=== PATIENT | female | born 1980 | race Caucasian/White ===

== ENCOUNTER 2020-08-19 18:16 | Emergency (ER) | payer BC ==
[~2020-08-19] VITALS: Ht 154.9 cm; Wt 59.0 kg
[2020-08-19 19:00] VITALS: BP_SYST 113
[2020-08-19] MEDS ORDERED: ACETAMINOPHEN 325 MG TABLET ONE (19:43)
[2020-08-19 20:12] LABS: BASOPHILS % (AUTO) 0.6 % (0.0-2.0); HEMATOCRIT 36.7 % (36-48); HEMOGLOBIN 12.4 g/dL (12.0-16.0); LYMPHOCYTES # (AUTO) 0.7 K/uL (1.0-5.5); LYMPHOCYTES % (AUTO) 18.1 % (20.5-51.5); MEAN CORPUSCULAR HEMOGLOBIN 29 pg (27-31); MEAN CORPUSCULAR HGB CONC 34 % (32-36); MEAN CORPUSCULAR VOLUME 86 fL (79.0-98.0); MONOCYTES # (AUTO) 0.4 K/uL (0.0-1.0); MONOCYTES % (AUTO) 9.5 % (1.7-9.3); NEUTROPHILS # (AUTO) 2.9 K/uL (1.8-7.7); NEUTROPHILS % (AUTO) 71.8 % (40.0-70.0); PLATELET COUNT (AUTO) 106 K/uL (130-430); RED BLOOD CELL COUNT(AUTO) 4.28 MIL/uL (4.2-6.2); RED CELL DISTRIBUTION WIDTH 13.5 % (9.0-15.0)
[2020-08-19 20:26] LABS: CALCIUM 8.7 mg/dL (8.4-11.0); CREATININE 0.77 mg/dL (0.55-1.30); POTASSIUM 3.3 mmol/L (3.5-5.1)
[2020-08-19 20:32] LABS: ALBUMIN 3.6 g/dL (3.4-4.8); TOTAL BILIRUBIN 0.6 mg/dL (0.0-1.0)
[2020-08-19 20:38] LABS: BILIRUBIN,URINE NEGATIVE (NEGATIVE); BLOOD, URINE 3+ (NEGATIVE); CLARITY/URINE SL CLOUDY (CLEAR); COLOR,URINE YELLOW (YELLOW); GLUCOSE,URINE NEGATIVE (NEGATIVE); KETONES,URINE 1+ (NEGATIVE); LEUKOCYTE ESTERASE ,URINE TRACE (NEGATIVE); NITRITE, URINE NEGATIVE (NEGATIVE); PROTEIN URINE 1+ (NEGATIVE)
[2020-08-19 21:31] LABS: BACTERIA,URINE None Seen /HPF (None Seen); CALCIUM OXALATE CRYSTALS,UR None Seen /HPF (None Seen); CALCIUM PHOSPHATE CRYSTALS,UR None Seen /HPF (None Seen); TRICHOMONAS,URINE None Seen /HPF (None Seen); WBC,URINE 0-3 /HPF (0-3); YEAST,URINE None Seen /HPF (None Seen)
[2020-08-19] MEDS ORDERED: NACL 0.9% 1,000 ML IV ONE ×2 (22:15)
[2020-08-19] MEDS ORDERED: KETOROLAC TROMETHAMINE 30 MG VIAL IVP ONE (22:15)
[2020-08-20] MEDS ORDERED: METOCLOPRAMIDE HCL 10 MG/2 ML VIAL IVP ONE
[2020-08-20] MEDS ORDERED: cefTRIAXone 1 GM VIAL IM ONE
[2020-08-20] MEDS ORDERED: cefTRIAXone 1 GM in D5W 50 ML IV ONE (01:00)
[2020-08-20] MEDS ORDERED: DOXYCYCLINE HYCLATE 100 MG CAPSULE PO ONE (04:30)
[2020-08-20] MEDS ORDERED: IBUP-1969 PO (04:34)
[2020-08-20] MEDS ORDERED: DOXY100C PO (04:34)
[2020-08-20 04:48] VITALS: BP_SYST 95
== END 2020-08-20 04:48 | disposition home or self-care (01) ==
LOC: SED 18:16
DX: D69.6 Thrombocytopenia, unspecified (principal); E87.6 Hypokalemia; R74.01 Elevation of levels of liver transaminase levels; R10.2 Pelvic and perineal pain
CPT/HCPCS: 36415; 74177; 76376; 76856; 80053; 81000; 81025; 83605; 85025; 87040; 96361 ×2; 96365; 96375 ×2; 99285; J0696; J1885; J2765; J7030 ×2; Q9967